=== PATIENT | female | born 1960 | race Caucasian/White ===

== ENCOUNTER 2020-08-04 10:58 | Outpatient (CLI) | payer BC, SELFPAY ==
--- NOTE | 2020-08-04 11:04 | USCV_ITS ---
Aurelia Lindo Age: 60 Gender: F : 1960 Exam Date: 08/04/2020 10:57 Ordering Phys: Jennifer Hardy MD Technologist: Exam Location: [facility] [place]_ Indication: BILATERAL LEG PAIN RIGHT LEFT Brachial 114.00 mmHg Brachial 124.00 mmHg Pressure (mmHg) Waveform Pressure (mmHg) Waveform 168.00 NEPHROLOGY NURSE 161.00 145.00 DPA 141.00 1.35 Ankle/Brachial Index 1.30 128.00 Pre-Exercise Toe Pressure 164.00 1.03 Pre-Exercise Toe/Brachial Index 1.32 FINDINGS Normal resting MU bilaterally Normal resting TBI bilaterally CONCLUSIONS No evidence of any significant arterial obstruction, based on the above findings. Dr Abiel Verde MD [facility] (Electronically Signed) Final Date: 09 Aug 2020 09:13 S
== END 2020-08-04 10:59 | disposition home or self-care (01) ==
LOC: US 11:01
PROVIDERS: PCP Family Medicine; Visit Provider Family Medicine
DX: M79.604 Pain in right leg (principal); M79.605 Pain in left leg
CPT/HCPCS: 93922

== ENCOUNTER 2020-08-11 07:04 | Outpatient (CLI) | payer BC, SELFPAY ==
--- NOTE | 2020-08-11 07:09 | MM_ITS ---
WS: [id number] SCREENING DIGITAL MAMMOGRAM WITH CAD HISTORY: SCREENING COMPARISON: 11/18/2018, 03/31/2014 and 06/27/2017 Bilateral CC and MLO views submitted. Computer aided detection analyzed. Breast composition: There are scattered areas of fibroglandular density. Increase in density in the a symmetry in the lateral LEFT breast on the CC projection. On the lateral projection the asymmetry is stable. MM/[place] [id number] IMPRESSION: BI-RADS: 0-Incomplete: Need additional imaging evaluation FOLLOW UP: Need Additional Imaging LEFT breast: Spot compression views (CC and MLO). True ML. Ultrasound to follow if abnormality persists.
== END 2020-08-11 07:05 | disposition home or self-care (01) ==
LOC: RADSHAW 07:05
PROVIDERS: PCP Family Medicine; Visit Provider Family Medicine
DX: Z12.31 Encounter for screening mammogram for malignant neoplasm of breast (principal)
CPT/HCPCS: 77067

== ENCOUNTER 2020-09-21 08:23 | Outpatient (CLI) | payer BC, SELFPAY ==
--- NOTE | 2020-09-21 08:33 | US_ITS ---
WS: [id number] ADDITIONAL VIEWS LEFT MAMMOGRAM LEFT BREAST ULTRASOUND HISTORY: ABNORMAL MAMMOGRAM COMPARISON: 08/11/2020, 11/18/2018 and 12/20/2012 LEFT MAMMOGRAM: Spot compression views and true ML. Mild asymmetry persists but slightly improved at a middle depth in the upper outer quadrant of the LE FT breast near 2:00. LEFT BREAST ULTRASOUND 2-D and color Doppler imaging submitted. At 1:00, 3 cm from the nipple are several small cysts. No solid mass. No distortion or shadowing. The re is a small lymph node at 2:00, 3 cm from the nipple. US/US breast LT limited* [id number] IMPRESSION: BI-RADS: 2-Benign FOLLOW UP: 1 Year Follow-up Mild asymmetry in the upper-outer quadrant of the LEFT breast corresponds to a benign lymph node and several small cysts.
== END 2020-09-21 08:24 | disposition home or self-care (01) ==
LOC: RADSHAW 08:25
PROVIDERS: PCP Family Medicine; Visit Provider Family Medicine
DX: R92.8 Other abnormal and inconclusive findings on diagnostic imaging of breast (principal); N64.89 Other specified disorders of breast
CPT/HCPCS: 76642; 77065

== ENCOUNTER → 2020-12-15 09:59 | Outpatient (BNVA) | payer BC, SELFPAY | PROVIDERS: PCP Family Medicine; Referring Provider Family Medicine; Visit Provider Podiatrist Foot & Ankle Surgery | DX: M79.673 Pain in unspecified foot (principal); M77.31 Calcaneal spur, right foot | CPT/HCPCS: 73630 ==

== ENCOUNTER 2021-08-10 09:27 | Outpatient (CLI) | payer BC, SELFPAY ==
--- NOTE | 2021-08-10 09:51 | MR_ITS ---
WS: [id number] MRI LUMBAR SPINE NONCONTRAST HISTORY: LOW BACK PAIN COMPARISON: None available. TECHNIQUE: Sagittal and axial multisequence imaging is submitted. L4 anterolisthesis by 3 mm. The remaining vertebral bodies are normally aligned. Disc spaces are well -maintained. No significant desiccation. No fracture or marrow edema. Disc spaces and vertebral body heights are well-preserved. Conus terminates normally at L1. L1-L2: Normal. L2-L3: Normal. L3-L4: Mild facet and ligamentum flavum arthritis. L4-L5: Very mild annular disc bulge. Very shallow LEFT foraminal disc protrusion. There is no contact of the nerve roots. Moderate ligamentum flavum hypertrophy and facet arthritis. There is mild encroa chment into the ventral thecal sac. Very mild narrowing of the subarticular recesses and central joshua l. L5-S1: Normal. Paravertebral soft tissues are normal. MR/MR lumbar spine wo con* [id number] IMPRESSION: 1. L4 anterolisthesis by 3 mm. 2. Mild central, bilateral subarticular recess stenosis at L4-5 with a very sh allow LEFT foraminal disc protrusion. Very mild encroachment upon the traversin g L5 nerve roots. 3. Very shallow LEFT foraminal disc protrusion at L4-5 with no nerve root cont act.
== END 2021-08-10 09:28 | disposition home or self-care (01) ==
PROVIDERS: PCP Family Medicine; Visit Provider Family Medicine
DX: R10.9 Unspecified abdominal pain (principal); M54.50 Low back pain, unspecified
CPT/HCPCS: 72148

== ENCOUNTER 2021-08-24 07:50 | Outpatient (CLI) | payer BC, SELFPAY ==
--- NOTE | 2021-08-24 07:59 | US_ITS ---
WS: [id number] TRANSABDOMINAL PELVIC AND TRANSVAGINAL PELVIC ULTRASOUND HISTORY: PELVIC PAIN COMPARISON: None available. Uterus: 8.2 cm x 4.3 cm x 3.9 cm. Normal size anteverted uterus. Area of decreased echogenicity along the lower anterior uterine segment measures 9 x 5.9 mm. No increased vascularity. This may be a smal l cystic fibroid Endometrium: 0.5 cm. Normal homogeneity. Right ovary: 3.2 cm x 2.2 cm x 1.5 cm. Normal size and echogenicity. Normal vascularity, seen on monterroso sabdominal imaging. Left ovary: Not visualized. No LEFT adnexal mass. No free fluid. US/US pelvic with transvaginal IMPRESSION: 1. Normal RIGHT ovary. 2. Small cystic area along the lower uterine segment. This may be a small dege nerating fibroid or even nabothian cyst. No solid mass. 3. LEFT ovary not visualized.
--- NOTE | 2021-08-24 07:59 | US_ITS ---
WS: [id number] Complete ABDOMINAL ULTRASOUND HISTORY: ABDOMINAL PAIN COMPARISON: None available. Liver: 18.3 cm in length. Liver is moderately enlarged with coarse echotexture and poor penetration f rom hepatic steatosis. No mass identified. Portal Vein: Normal hepatopetal flow with monophasic waveform. Gallbladder: Prior cholecystectomy. Pancreas: Normal size and echogenicity. CBD: 0.4 cm. Right kidney: 11.0 cm x 4.1 cm x 5.0 cm. No mass, cortical thickening or hydronephrosis. Left kidney: 12.0 cm x 4.6 cm x 4.4 cm. No mass, cortical thickening or hydronephrosis. Spleen: Normal size and echogenicity. Abdominal aorta and IVC are within normal limits. No ascites. US/US abdomen complete* [id number] IMPRESSION: 1. Prior cholecystectomy. No bile duct dilatation. 2. Moderate hepatomegaly and hepatic steatosis.
== END 2021-08-24 07:51 | disposition home or self-care (01) ==
LOC: RAD 07:52
PROVIDERS: PCP Family Medicine; Visit Provider Family Medicine
DX: R10.9 Unspecified abdominal pain (principal)
CPT/HCPCS: 76700; 76830; 76856

== ENCOUNTER 2022-02-06 14:10 | Outpatient (CLI) | payer BC, SELFPAY ==
--- NOTE | 2022-02-06 14:18 | MM_ITS ---
WS: [id number] BILATERAL 3D TOMOSYNTHESIS DIGITAL SCREENING MAMMOGRAPHY WITH CAD CLINICAL INFORMATION: SCREENING HISTORY: Screening mammogram. No current complaints. COMPARISON: August 11, 2020 TECHNIQUE: Bilateral CC and MLO views. FINDINGS: Scattered fibroglandular densities bilaterally. No suspicious focal mass, asymmetry, calcifications, or architectural distortion. No evidence of malignancy. A few incidental punctate calcifications. MM/[place] [id number] IMPRESSION: BI-RADS: 2-Benign FOLLOW UP: 1 Year Follow-up Recommend return to annual screening mammography.
== END 2022-02-06 14:11 | disposition home or self-care (01) ==
LOC: RAD 14:11
PROVIDERS: PCP Family Medicine; Visit Provider Family Medicine
DX: Z12.31 Encounter for screening mammogram for malignant neoplasm of breast (principal)
CPT/HCPCS: 77063; 77067

== ENCOUNTER → 2022-08-30 15:30 | Outpatient (BNVA) | payer BC, SELFPAY | PROVIDERS: PCP Family Medicine; Referring Provider Family Medicine; Visit Provider Orthopaedic Surgery | DX: M18.11 Unilateral primary osteoarthritis of first carpometacarpal joint, right hand (principal) | CPT/HCPCS: 73110 ==

== ENCOUNTER → 2022-10-09 14:42 | Outpatient (BNVA) | payer BC, SELFPAY | PROVIDERS: PCP Family Medicine; Visit Provider Student in an Organized Health Care Education/Training Program | DX: S82.852A Displaced trimalleolar fracture of left lower leg, initial encounter for closed fracture (principal); W10.9XXA Fall (on) (from) unspecified stairs and steps, initial encounter; Y92.26 Movie house or cinema as the place of occurrence of the external cause | CPT/HCPCS: 73610 ==

== ENCOUNTER 2022-10-13 10:45 | Day surgery (SDC) | payer BC, SELFPAY ==
[2022-10-13] VITALS (9 sets, daily range): BP systolic 99–126; BP diastolic 66–89; PULSE 78–85; RESP 16–18; TEMP 36.1–36.8; O2SAT 92–98
--- NOTE | 2022-10-13 | XR_ITS ---
WS: [id number] XR ankle LT 2V [id number] REASON FOR EXAM: BRIGIDO PIC FINDINGS: Plate and screw fixation, transverse tibiofibular anchor fixation of distal left fibular spiral fract ure. Long screw fixation of transverse medial malleolar fracture. Surgical appliances are intact and in proper position and alignment. Fracture fragments are in good position and alignment. Previously demonstrated minimally displaced posterior malleolar fracture not demonstrated. XR/XR ankle LT 2V [id number] IMPRESSION: Complex left ankle fracture with fixation as above.
[2022-10-13] MEDS: sodium chloride 0.9% 1,000 ML 30 ML IV (11:15)
[2022-10-13] MEDS: ketorolac 30 mg/mL INJ IVP (11:17)
[2022-10-13] MEDS: acetaminophen 1,000 MG/100 ML PIGGYBACK 400 MG IV (11:18)
--- NOTE | 2022-10-13 11:49 | ANES.PREANE2 ---
Pre-Anesthetic Assessment Height/Weight: Height 1.75 m Weight 106.594 kg Temp Pulse Resp BP Pulse Ox O2 Del Method 97 F L 78 18 124/84 95 Room Air 10/13/22 11:12 10/13/22 11:12 10/13/22 11:12 10/13/22 11:12 10/13/22 11:12 10/13/22 11:12 Preop Diagnosis: Left Ankle Trimalleolar fracture Operation Date: 10/13/22 12:35 Proposed Procedures p Left Trimalleolar Ankle Open Reduction Internal Fixation [id number], T14.8XXA(Left) - Sherwin Sevilla DO Familial anesthetic complications: none Was Beta Roland taken within 24 hours: N/A Was Clonidine taken within 24 hours: N/A Last intake: Intake Last Liquid Date 10/12/22 Last Liquid Time 20:00 Last Solid Date 10/12/22 Last Solid Time 18:00 Social No alcohol and No tobacco Exam alert, oriented x 3, clear to auscultation bilaterally and regular rate & rhythm Airway Submandibular: within normal limits Cervical ROM: within normal limits Mallampati: Class II Dentition: chipped GI Gastroesophageal Reflux Disease Metabolic Morbid Obesity [facility] [place] Osteoarthritis/DJD Neuropsych Neuropathy Anesthetic Plan ASA status: 3 Anesthesia: General and Regional (specify below) (Left popliteal blk) Medications/Allergies Home Medications Medication Instructions Recorded Confirmed Last Taken Type hydrocodone 7.5 mg-acetaminophen 15 ml PO QID PRN Pain 12/15/20 10/12/22 10/13/22 07:00 History 325 mg/15 mL oral solution omeprazole 20 mg capsule,delayed 20 mg PO BID 12/15/20 10/12/22 10/12/22 History release pregabalin 100 mg capsule See Rx Instructions .Route .COMPLEX 12/15/20 10/12/22 10/13/22 07:00 History promethazine 25 mg tablet 25 mg PO ONCE PRN Pain 12/15/20 10/12/22 Unknown History tizanidine 4 mg capsule 4 mg PO ONCE PRN Sleep 12/15/20 10/12/22 Unknown History venlafaxine 150 mg 150 mg PO DAILY 12/15/20 10/12/22 10/12/22 History capsule,extended release 24 hr (Effexor XR) zolpidem 10 mg tablet 10 mg PO ONCE 12/15/20 10/12/22 10/12/22 History ivermectin 1 % topical cream 1 applic topical DAILY #45 grams 11/30/21 10/13/22 10/13/22 07:00 Rx (Soolantra) sulfacetamide sodium-sulfur 9 1 applic topical DAILY #454 grams 05/01/22 10/12/22 10/12/22 Rx %-4.5 % topical cleanser tacrolimus 0.1 % topical ointment 1 applic topical BID #30 grams 07/07/22 10/12/22 10/12/22 Rx (Protopic) ketorolac 10 mg tablet 10 mg PO TID PRN pain 5 days #15 10/11/22 10/12/22 10/13/22 07:00 Rx tabs Allergies Allergy/AdvReac Type Severity Reaction Status Date / Time No Known Allergies Allergy Verified 10/12/22 13:18 Current Medications Generic Name Dose Route Start Last Admin Trade Name Freq PRN Reason Stop Dose Admin Sodium Chloride 1,000 mls @ 30 mls/hr 10/13/22 11:00 10/13/22 11:15 Sodium Chloride 0.9% IV 10/14/22 10:59 30 mls/hr .Q24H TERESE Administration PFSH Anesthesia Medical History Neuropathic pain Surgical History History of tonsillectomy and adenoidectomy Social History Smoking and tobacco status: never smoked Data Anesthesia Cardiac Studies: No Data to Display
[2022-10-13] MEDS: ceFAZolin 2,000 MG in sodium chloride 0.9% (plus) 50 ML 100 MG IV (13:51)
--- NOTE | 2022-10-13 13:53 | W.PM.OPSUD ---
Surgery/Procedure H&P Update DATE OF PROCEDURE: October 13, 2022 DATE H&P PERFORMED: 10/09/22 CHANGES TO PREVIOUS DOCUMENTATION: None. No change in HPI from previous office visit. Patient's swelling has improved she has positive wrinkle sign able to proceed with surgery today. She understands risk benefits complication alternatives with surgery elects proceed with surgical intervention of left ankle trimalleolar fracture open reduction internal fixation. PREOP DIAGNOSIS: Left Ankle Trimalleolar fracture PRIMARY INDICATION FOR PROCEDURE: Left trimalleolar ankle fracture PLANNED PROCEDURE: Operation Date: 10/13/22 12:35 Proposed Procedures p Left Trimalleolar Ankle Open Reduction Internal Fixation [id number], T14.8XXA(Left) - Sherwin Sevilla DO
--- NOTE | 2022-10-13 14:50 | ANES.PROC ---
Anesthesia Procedures Procedure/Date: 10/13/22 Nerve Block ^: Nerve Block 1: Main Anesthesia: general anesthesia Time Out Performed: Yes Consent: requested by attending/covering physician, from patient, risks and benefits reviewed and patient agrees to proceed Nerve block location: popliteal (left) Anesthesia monitors applied: pulse oximetry, EKG, BP cuff and oxygen Nerve block position: supine Anesthetic Used: ropivicaine 0.5% Amount of anesthesia used (mL): 30 Ultrasound used to: recognize landmarks Nerve Stimulator Used?: No Interscalene/Femoral BLK: 4 stimuplex 21 g needle used for position and inplane approach Injection: neg aspiration of heme Patient Tolerated Procedure: well Complications: none
--- NOTE | 2022-10-13 15:58 | PM.OP2 ---
Brief Operative Note Date of procedure: 10/13/22 Pre-op diagnosis: Left ankle trimalleolar fracture Post-op diagnosis: same (With syndesmotic disruption) Procedure Done: Left trimalleolar ankle fracture open reduction internal fixation Left ankle syndesmotic tight rope fixation Left ankle short leg splint application Surgeon: Sherwin Sevilla Estimated blood loss (mL): 25 Complications: None Post-op Plan: Patient taken to PACU stable condition recovering well dressings on in place clean dry and intact splint is clean dry and intact. Patient will receive appropriate discharge instructions as well as pain medication as well as DVT prophylaxis postoperatively encourage calcium vitamin D supplementation. Elevation ice as needed for pain and swelling nonweightbearing left lower extremity. Follow-up in the orthopedic office in 2 weeks. Contact the office for any questions or concerns Condition: stable Disposition: same day Coding Level of Care Code Acute Code for Lexi Pressley
--- NOTE | 2022-10-13 15:58 | PM.PACU ---
PACU note Narrative: Patient taken to PACU in stable condition recovering well splint on in place clean dry and intact toes warm well-perfused brisk cap refill less than 2 seconds. Splint limits examination. Patient received regional anesthesia the left lower extremity limiting examination Exam: awake Disposition: discharged
--- NOTE | 2022-10-13 15:59 | PM.OP ---
Operative Report Date of procedure: October 13, 2022 Pre-op diagnosis: Preop Diagnosis Left Ankle Trimalleolar fracture Post-op diagnosis: Same, with with syndesmotic disruption Procedure done: Left trimalleolar ankle fracture open reduction internal fixation Left ankle syndesmotic tight rope fixation Left ankle short leg splint application Implants: Ricki anatomic distal fibula plate combination of locking and nonlocking screws and interfragmentary screws Ricki 4.0 partially-threaded cannulated screws x2 Arthrex syndesmosis tight rope XP implant Surgeon: Sherwin Sevilla DO Estimated blood loss: 25mL 67min IV fluids: 700mL Urine output: See anesthesia record Complications: None Findings: See operative report narrative Condition: stable Disposition: same day Brief History: Patient is a 62-year-old female who sustained a left trimalleolar ankle fracture. This was seen in an outpatient facility with splint in the emergency department and referred to myself for an orthopedic closer to home as she was in [place]. On my evaluation patient has inherently unstable left bimalleolar ankle fracture. Her posterior malleolus fracture fragment is less than 10%. We talked about treatment options far as nonoperative and operative intervention. At this point time given the inherent instability would recommend surgical intervention of ORIF left trimalleolar ankle fracture. Understanding her risk for surgery as far as risk benefits complications with surgical nonsurgical treatment options she agrees to proceed with surgical intervention. All questions been answered at this time. Soft tissue check prior to surgery demonstrates positive wrinkle sign amenable for surgical intervention. Consent was obtained she agrees to proceed with surgery. Procedure: Patient seen evaluated in the preoperative holding area. Consent was reviewed and signed with patient. Correct extremity was marked. Splint was taken down soft tissue inspected and positive wrinkle sign demonstrating amendable for proceeding with surgical intervention. Patient underwent regional anesthesia per the anesthesia department. She was brought back to the operative suite. She was transported on the OR table placed in supine position all bony prominences well-padded patient appropriate secured to the bed. She then underwent anesthesia per the anesthesia department. Once appropriately anesthetized the left lower extremity was then nonsterile tourniquet applied to the left thigh. She was placed in ipsilateral hip bump was placed for appropriate foot positioning and was placed on bone foam large C arm was used for this procedure. She was then prepped and draped in standard orthopedic fashion. Final timeout performed. Patient received appropriate preoperative antibiotics. Large fluoroscopic C-arm was then brought into identify fracture fragments. At this point in time I then planned for a lateral and medial incision. Started with my lateral incision. A standard direct lateral approach to the distal fibula was performed with care to protect the SPN nerve I utilized sharp scalpel incision dissection scissors and then elevated with a periosteal elevator on bone to the fracture site and proximal to accommodate for plate fixation. I then identified the fracture site. Patient had a large fracture fragment that was avulsed with the anterior portion of the syndesmosis as well as an additional fracture fragment there appeared to be 2 main fracture fragments that would be amendable for interfragmentary screw fixation. As result I clamped the anterior Joseph fragment of the fibula to the distal fibula to recreate this anatomic reduction the fracture site was cleared out with scalpel curettes as well as dental pick once I achieved anatomic reduction this was held with a [id number] clamp once and while this was held and then subsequently drilled measured and placed in appropriate interfragmentary lag screw under standard technique. This had excellent fixation remove this clamp and now only had 2 fracture fragments left. I then clamped the proximal and distal fracture fragments and then subsequently was satisfied with my reduction on C arm and then subsequently placed an additional anterior to posterior lag screw by technique which was subsequently drilled measured and appropriate screw length was placed. This had excellent fixation and this held my reduction of the distal fibula I then selected a [place] anatomic distal fibula plate to the appropriate length this was then held up to the bone and once confirmed to be in appropriate position I then subsequently drilled a 3 5 cortical screw proximally to secure the plate to bone as well as did this distally to secure the plate to bone once I was confirmed that there was good bone to plate interface and the fracture was well maintained I then subsequently locked the plate distally was subsequently drilled measured and placed appropriate length multiple locking screws around my cortical screw once this was completed I remove my distal cortical screw and placed a shorter locking screw all the screws were in appropriate position and did not violate the lateral gutter. Next I turned my fixation proximally and then subsequently drilled an additional cortical screw at the top of my plate which was drilled measured and placed with excellent fixation and then subsequently placed an additional locking screws proximally which were placed in standard fashion. This completed my lateral distal fibula ORIF and was satisfied with my reduction next my attention was turned towards the medial malleolus A standard direct medial incision was then made centering over the fracture fragment of the medial malleolus sharp scalpel excision was made through skin I then utilized a periosteal elevator identified the fracture fragment. Patient's fracture was then opened booked and the joint was then thoroughly irrigated there is a small couple loose pieces of cartilage that were excised as these were small and had no bone involvement. At this point I then utilized a dental pick as well as sharp scalpel excision to remove the involved periosteum of the fracture site I then utilized a [id number] clamp to obtain anatomic reduction this was confirmed with large C arm imaging. This was going to be amendable for cannulated screw fixation. I subsequently advanced 2 screws perpendicular across fracture site and in parallel fashion through the medial malleolus fracture fragment and securing it into the physeal scar. These were confirmed to be in appropriate position I subsequently measured these and these were both 42 mm in length and as a result I subsequently overdrilled the near cortex in standard lag by design and placed to 42 mm 4.0 partially-threaded [place] cannulated screws which were then advanced by hand and had excellent fixation wires were then removed this was satisfactory medial malleolus fixation. I then assessed the posterior malleolus this fracture fragment was in good alignment position and was less than 10% and at this point in time I deemed it not necessary for an anterior to posterior screw fixation and as result I stressed the ankle with external stress test and cotton test and there was a subtle amount of medial clear space widening in order to prophylactically treat the posterior malleolus as well as the syndesmotic injury I then plan for tight rope fixation. I then went to the open hole at the level of the syndesmosis and the anatomic plate. I then subsequently utilizing Arthrex his syndesmotic tight rope fixation subsequently drilled parallel to the joint while maintaining reduction of the syndesmosis. Drill was advanced quad cortically and then subsequently utilized the tight rope XP system flipped the button on the medial cortex and sequentially tightened while maintaining my reduction of syndesmosis. This was secured down and then tied off. This had excellent fixation and the syndesmosis was then stressed again with external stress test and cotton test and this was found to be stable and this completed my fixation. Final x-rays were taken of AP ankle mortise stress as well as lateral images which showed stable trimalleolar ankle ORIF and syndesmotic fixation. Tourniquet was deflated. Hemostasis was satisfactory. Wound beds were then thoroughly irrigated. I then closed the medial incision in layered fashion with 2-0 Vicryl suture in interrupted with nylon vertical mattress stitches. The lateral incision was closed with 0 Vicryl 2-0 Vicryl and sandrine. Xeroform covered the incision sites. 4 x 4's ABDs Curlex soft roll and a standard AO short leg splint was then applied with holding the foot in neutral position. Patient was then awake from anesthesia and taken to PACU in stable condition. Disposition: Patient taken to PACU in stable condition recovering well. Pain controlled. Will receive appropriate discharge instructions as well as pain medication postoperatively. Maintain splint until follow-up. Follow-up in the orthopedic office in 2 weeks. Patient understands and agrees with current plan. All questions answered. Elevation ice as needed. Will receive DVT prophylaxis of aspirin.
[2022-10-13] MEDS: HYDROcodone-acetaminophen 7.5-325 mg Tablet 1 TAB PO (16:38)
--- NOTE | 2022-10-13 17:07 | ANE.PACU2 ---
Inpatient post-anesthesia follow up: Airway intact: Yes Vital signs: Temperature 97.9 F Pulse Rate 79 Respiratory Rate 16 Blood Pressure 111/75 Pulse Oximetry 98 Oxygen Delivery Me thod Room Air Oxygen Flow Rate Fraction of Inspir ed Oxygen Hydration adequate: Yes Nausea and vomiting: No Pain level: 3 Mental status: Baseline
== END 2022-10-13 17:40 | disposition home or self-care (01) ==
PROVIDERS: PCP Family Medicine; Visit Provider Student in an Organized Health Care Education/Training Program
PROC: (CPT 27822; principal; 2022-10-13 12:35)
DX: S82.852A Displaced trimalleolar fracture of left lower leg, initial encounter for closed fracture (principal); X58.XXXA Exposure to other specified factors, initial encounter; K21.9 Gastro-esophageal reflux disease without esophagitis; E66.01 Morbid (severe) obesity due to excess calories; Z68.34 Body mass index [BMI] 34.0-34.9, adult
CPT/HCPCS: 27822; 73600; 76000; C1713; J0131; J0690; J1100; J1885; J2405; J2704; J2795; J3010; J3490; J7030

== ENCOUNTER → 2022-10-31 08:53 | Outpatient (BNVA) | payer BC, SELFPAY | PROVIDERS: PCP Family Medicine; Visit Provider Student in an Organized Health Care Education/Training Program | DX: S82.852A Displaced trimalleolar fracture of left lower leg, initial encounter for closed fracture (principal); X58.XXXA Exposure to other specified factors, initial encounter | CPT/HCPCS: 73610 ==

== ENCOUNTER 2022-10-31 15:56 | Outpatient (CLI) | payer BC, SELFPAY | END 2022-10-31 15:57 | disposition home or self-care (01) | LOC: SPT 15:59 | PROVIDERS: PCP Family Medicine; Visit Provider Student in an Organized Health Care Education/Training Program | DX: Z46.89 Encounter for fitting and adjustment of other specified devices (principal); S82.852D Displaced trimalleolar fracture of left lower leg, subsequent encounter for closed fracture with routine healing; X58.XXXD Exposure to other specified factors, subsequent encounter; Z98.890 Other specified postprocedural states | CPT/HCPCS: 97760; L4361 ==

== ENCOUNTER → 2022-12-05 09:04 | Outpatient (BNVA) | payer BC, SELFPAY | PROVIDERS: PCP Family Medicine; Visit Provider Student in an Organized Health Care Education/Training Program | DX: S82.852A Displaced trimalleolar fracture of left lower leg, initial encounter for closed fracture; X58.XXXA Exposure to other specified factors, initial encounter | CPT/HCPCS: 73610 ==

== ENCOUNTER 2022-12-05 14:55 | Outpatient (CLI) | payer BC, SELFPAY | END 2022-12-05 14:56 | disposition home or self-care (01) | LOC: SPT 14:56 | PROVIDERS: PCP Family Medicine; Visit Provider Student in an Organized Health Care Education/Training Program | DX: Z46.89 Encounter for fitting and adjustment of other specified devices (principal); S82.853D Displaced trimalleolar fracture of unspecified lower leg, subsequent encounter for closed fracture with routine healing; X58.XXXD Exposure to other specified factors, subsequent encounter | CPT/HCPCS: 97760; L1902 ==

== ENCOUNTER → 2022-12-19 09:34 | Outpatient (BNVA) | payer BC, SELFPAY | PROVIDERS: PCP Family Medicine; Visit Provider Physician Assistant | DX: S82.852A Displaced trimalleolar fracture of left lower leg, initial encounter for closed fracture; X58.XXXA Exposure to other specified factors, initial encounter | CPT/HCPCS: 73610 ==

== ENCOUNTER → 2023-01-30 08:45 | Outpatient (BNVA) | payer BC, SELFPAY | PROVIDERS: PCP Family Medicine; Visit Provider Physician Assistant | DX: S82.853D Displaced trimalleolar fracture of unspecified lower leg, subsequent encounter for closed fracture with routine healing; X58.XXXD Exposure to other specified factors, subsequent encounter; Z98.890 Other specified postprocedural states | CPT/HCPCS: 73610 ==

== ENCOUNTER 2023-02-08 08:25 | Outpatient (CLI) | payer BC, SELFPAY ==
--- NOTE | 2023-02-08 08:35 | XRR_ITS ---
PROCEDURE INFORMATION: Exam: XR Right Hip Exam date and time: 02/08/2023 8:42 AM Age: 63 years old Clinical indication: Patient HX: Right hip pain and lower back pain; Additional info: Low back pain TECHNIQUE: Imaging protocol: Radiologic exam of the right hip. Views: 1 view hip with pelvis when performed. COMPARISON: US pelv w/transvag [id number] 08/24/2021 8:49 AM FINDINGS: Bones/joints: Unremarkable. No acute fracture. Soft tissues: Unremarkable. XR/XR hip RT 2-3V wo/w pel* [id number] IMPRESSION: No acute findings.
--- NOTE | 2023-02-08 08:35 | XRR_ITS ---
PROCEDURE INFORMATION: Exam: XR Lumbosacral Spine Exam date and time: 02/08/2023 8:42 AM Age: 63 years old Clinical indication: Low back pain; Patient HX: Right hip pain and lower back pain; Additional info: Pain in right hip TECHNIQUE: Imaging protocol: Radiologic exam of the lumbosacral spine. Views: 2 or 3 views. COMPARISON: MR lumbar spine wo con* [id number] 08/10/2021 10:40 AM FINDINGS: Bones/joints: There is 7 mm grade 1 L4-L5 spondylolisthesis. There is normal mobility on flexion and extension imaging. Disc heights are otherwise generally preserved. There is mild facet arthropathy. Soft tissues: Unremarkable. XR/XR lumbar spine f/e only [id number] IMPRESSION: L4-L5 spondylolisthesis.
== END 2023-02-08 08:26 | disposition home or self-care (01) ==
LOC: RAD 08:30
PROVIDERS: PCP Family Medicine; Visit Provider Anesthesiology Pain Medicine
DX: M43.16 Spondylolisthesis, lumbar region (principal); M54.51 Vertebrogenic low back pain; M25.551 Pain in right hip
CPT/HCPCS: 72120; 73502

== ENCOUNTER → 2023-05-04 08:18 | Outpatient (BNVA) | payer BC, SELFPAY | PROVIDERS: PCP Family Medicine; Visit Provider Physician Assistant | DX: Z98.890 Other specified postprocedural states (principal); S82.852D Displaced trimalleolar fracture of left lower leg, subsequent encounter for closed fracture with routine healing; X58.XXXD Exposure to other specified factors, subsequent encounter | CPT/HCPCS: 73610 ==

== ENCOUNTER 2023-06-11 06:45 | Outpatient (CLI) | payer BC, SELFPAY ==
--- NOTE | 2023-06-11 07:26 | MM_ITS ---
WS: [id number] BILATERAL SCREENING DIGITAL TOMOSYNTHESIS MAMMOGRAM WITH CAD HISTORY: SCREENING COMPARISON: 06/27/2017, 11/18/2018, 09/21/2020 and 02/06/2022 Bilateral CC and MLO views with tomosynthesis and synthetic mammography submitted. Computer aided det ection analyzed. Breast composition: There are scattered areas of fibroglandular density. No suspicious masses, microc alcifications or architectural distortion. Benign lymph node anterior medial LEFT breast. IMPRESSION: MM/[place] [id number] BI-RADS: 2-Benign FOLLOW UP: 1 Year Follow-up
== END 2023-06-11 06:46 | disposition home or self-care (01) ==
LOC: RAD 06:45
PROVIDERS: PCP Family Medicine; Visit Provider Family Medicine
DX: Z12.31 Encounter for screening mammogram for malignant neoplasm of breast (principal)
CPT/HCPCS: 77063; 77067

== ENCOUNTER 2023-06-25 12:40 | Outpatient (CLI) | payer BC, SELFPAY ==
--- NOTE | 2023-06-25 12:44 | XR_ITS ---
WS: [id number] DEXA (DUAL ENERGY X-RAY ABSORPTIOMETRY) Bone mineral density was performed using a [employer]ets[employer] machine. HISTORY: ASYMTOMATIC MENOPAUSAL STATE COMPARISON: None available. Lumbar spine BMD (L1-L4): 1.284 g/cm2 T score: 0.9 Z score: 1.3 Total hip BMD: Left: 0.965 g/cm2. T score: -0.3 Z score: 0.0 Right: 0.994 g/cm2. T score: -0.1 Z score: 0.3 10 year probability of a major osteoporotic fracture is 12.5%. IMPRESSION: NORMAL BONE MINERAL DENSITY based upon the WHO classification for females.
== END 2023-06-25 12:41 | disposition home or self-care (01) ==
LOC: RAD 12:40
PROVIDERS: PCP Family Medicine; Visit Provider Family Medicine
DX: Z78.0 Asymptomatic menopausal state (principal)
CPT/HCPCS: 77080

== ENCOUNTER 2024-08-14 07:42 | Outpatient (CLI) | payer BC, SELFPAY ==
--- NOTE | 2024-08-14 07:45 | MM_ITS ---
WS: [id number] BILATERAL SCREENING DIGITAL TOMOSYNTHESIS MAMMOGRAM WITH CAD HISTORY: SCREENING COMPARISON: 06/11/2023, 02/06/2022, 08/11/2020 Bilateral CC and MLO views with tomosynthesis and synthetic mammography submitted. Computer aided detection analyzed. Breast composition: The breasts are heterogeneously dense, which may obscure small masses. No suspicious masses, microcalcifications or architectural distortion. Scattered masses and asymmetries within each breast are stable over multiple prior exams. MM/MM scr tomosynthesis [id number] IMPRESSION: BI-RADS: 2 - Benign FOLLOW UP: 1 Year Follow-up
== END 2024-08-14 07:43 | disposition home or self-care (01) ==
PROVIDERS: PCP Family Medicine; Visit Provider Family Medicine
DX: Z12.31 Encounter for screening mammogram for malignant neoplasm of breast (principal); R92.333 Mammographic heterogeneous density, bilateral breasts; N64.89 Other specified disorders of breast
CPT/HCPCS: 77063; 77067